=== PATIENT | male | born 1995 | race Caucasian/White ===

== ENCOUNTER 2024-03-12 20:58 | Emergency (ER) | payer OTHER ==
[~2024-03-12] VITALS: Ht 172.7 cm; Wt 98.0 kg
[2024-03-12 21:07] VITALS: BP 118/68; PULSE 75; TEMP 98; O2SAT 100
[2024-03-12] MEDS: LIDOCAINE HCL 1% 20ML VIAL INFIL ONE (22:00)
[2024-03-12 22:30] VITALS: RESP 19
== END 2024-03-13 00:31 | disposition home or self-care (01) ==
LOC: ER 20:58
DX: S00.432A Contusion of left ear, initial encounter (principal); X58.XXXA Exposure to other specified factors, initial encounter; Y93.89 Activity, other specified; Y92.89 Other specified places as the place of occurrence of the external cause; Y99.8 Other external cause status
CPT/HCPCS: 69000; 99282; J3490; Z7610 ×3